=== PATIENT | female | born 1955 | race Caucasian/White ===

== ENCOUNTER 2024-11-24 13:16 | Emergency (ER) | payer MEDICARE, SELFPAY ==
--- NOTE | 2024-11-24 13:18 | ED.GENADULT ---
HPI - General Adult General Chief complaint: Upper Respiratory Infection Stated complaint: cold symptons Time Seen by Provider: 11/24/24 13:17 Source: patient Mode of arrival: ambulatory Limitations: no limitations History of Present Illness HPI narrative: 69-year-old female patient presents to the [facility] with complaints of flu-like symptoms that started about 2 days ago. He patient states that she has had some fatigue, weakness lack of appetite, congestion, sore throat and a cough. Patient states at times she gets shortness of breath with the coughing. Patient states she has been taking some [id number] Mucinex. Denies any fevers that she is aware of. Denies any abdominal pain, nausea, vomiting or diarrhea. Related Data Home Medications ?Medication ?Instructions ?Recorded ?Confirmed ?Last Taken ?Type Isosorbide mononitrate ER 90 mg BYMOUTH 1XD 12/05/23 09/17/24 Unknown History amlodipine 10 mg tablet 10 mg PO DAILY 12/05/23 09/17/24 Unknown History aspirin 81 mg tablet,delayed 81 mg PO DAILY 12/05/23 09/17/24 Unknown History release (Amanda Low Dose Aspirin) cholecalciferol (vitamin D3) 50 5,000 unit PO DAILY 12/05/23 09/17/24 Unknown History mcg (2,000 unit) capsule clopidogrel 75 mg tablet 75 mg PO DAILY 12/05/23 09/17/24 Unknown History magnesium 200 mg tablet 400 mg PO DAILY 12/05/23 09/17/24 Unknown History melatonin 10 mg capsule 20 mg PO QHS 12/05/23 09/17/24 Unknown History metoprolol tartrate 50 mg tablet 50 mg PO BID 12/05/23 09/17/24 Unknown History nitroglycerin 0.4 mg sublingual 0.4 mg sublingual Q5M PRN 12/05/23 09/17/24 Unknown History tablet ranolazine 500 mg tablet,extended 500 mg PO Q12H 12/05/23 09/17/24 Unknown History release,12 hr rosuvastatin 20 mg tablet 20 mg PO DAILY 12/05/23 09/17/24 Unknown History magnesium glycinate 400 mg PO DAILY 09/17/24 09/17/24 Unknown History albuterol sulfate 90 mcg/actuation inhalation 11/24/24 Unknown History aerosol inhaler furosemide 20 mg tablet mg 11/24/24 Unknown History montelukast 10 mg tablet 10 mg PO DAILY 11/24/24 11/24/24 Unknown History (Singulair) Allergies Allergy/AdvReac Type Severity Reaction Status Date / Time clindamycin Allergy Unknown Vomiting Verified 01/03/24 09:49 losartan Allergy Unknown Anaphylactic Verified 01/03/24 09:49 Shock Review of Systems Review of Systems: CONSTITUTIONAL: Denies fever, chills, or sweats. Positive body aches and fatigue EYES: Denies visual changes, redness, or discharge. ENT: Denies rhinorrhea, positive congestion, sore throat, denies otalgia. CARDIOVASCULAR: Denies chest pain, palpitations, or edema. RESPIRATORY: positive cough positive intermittent dyspnea with coughing. GASTROINTESTINAL: Denies abdominal pain, nausea, vomiting, or diarrhea. GENITOURINARY: Denies dysuria or hematuria. SKIN: Denies rash or itching. MUSCULOSKELETAL: Denies back pain, joint pain, or myalgia. NEUROLOGIC: Denies headache, numbness, or weakness. PSYCHIATRIC: Denies anxiety or depression. 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 MAIN (obstructive sleep apnea) Hyperlipidemia Heart attack Chronic GERD CAD (coronary artery disease) Anxiety Seasonal allergic rhinitis Surgical History Surgical History H/O esophagogastroduodenoscopy 10/13/14 H/O colonoscopy 10/13/14 History of cardiac cath H/O mastectomy 2007 S/P ACL reconstruction right knee 1991 H/O: hysterectomy Status post double vessel coronary artery bypass S/P breast lumpectomy Hx of appendectomy History of Marck fundoplication Tubal ligation status Family History Family History Father Alcoholism Hypertension Heart disease Sibling Diabetes mellitus Hypertension Heart disease Grandparent Diabetes mellitus Social History Social History Social History: 09/16/24 Patient very confident in filling out medical forms. Smoking status: Never smoker Alcohol intake: never Substance use: never Substance use type: does not use Do You Feel Safe in your Home?: Yes Lack of Transportation: No Lack of Food: Never True Current Housing: I Have Housing Concerned About Future Housing: No Difficulty Paying Gas/Electric Bills: No Difficulty Paying for Meds: No Currently Unemployed: No Education: Master's Degree or Higher Difficulty w/ Childcare or Family Care: No Living arrangements: with family Occupation/Education: retired Gender identity (if verbalized by the patient): Female Comments At the time of my signature I agree with nursing past medical history, surgical, social, and family history. There is no relevant family history pertinent to the presenting complaint. Exam Narrative: GENERAL: Well-appearing, well-nourished, and in no acute distress. HEAD: Normocephalic, atraumatic. EYES: PERRLA and EOMI. ENT: Nares clear, no rhinorrhea or epistaxis. Mucous membranes moist. NECK: Supple. No lymphadenopathy CHEST: Clear to auscultation. No respiratory distress. HEART: Regular rate and rhythm. No murmur heard. Normal peripheral pulses. ABDOMEN: Soft, nontender, nondistended, normal active bowel sounds. EXTREMITIES: Normal range of motion. No edema. SKIN: Warm, dry, no rash. NEURO: No focal deficits. Alert and oriented x3. Course Course Level of Care: Express Care Visit Vital Signs Vital signs: Vital Signs Temperature 36.3 C L 11/24/24 13:27 Pulse Rate 80 11/24/24 13:27 Respiratory Rate 18 11/24/24 13:27 Blood Pressure 134/80 11/24/24 13:27 Pulse Oximetry 100 11/24/24 13:27 Oxygen Delivery Room Air 11/24/24 13:27 Temperature 36.3 C L 11/24/24 13:27 Pulse Rate 80 11/24/24 13:27 Respiratory Rate 18 11/24/24 13:27 Blood Pressure 134/80 11/24/24 13:27 Pulse Oximetry 100 11/24/24 13:27 Oxygen Delivery Room Air 11/24/24 13:27 vital signs reviewed. The patient has been informed that they may have pre-hypertension or Hypertension based on a BP reading in the department. I recommend that the patient call the primary care provider listed on their discharge instructions or a physician of their choice this week to arrange follow up for further evaluation of possible pre-hypertension or Hypertension Medical Decision Making MDM Narrative Medical decision making narrative: discussed with patient that her point of care testing of influenza, COVID and strep all came back negative. We will send her throat swab to the lab for a culture if that does come back positive we will call her an antibiotic at that time however this time she most likely just has a virus that will take some time to get over. I will go ahead and prescribe her some Tessalon Perles and an inhaler to help with the coughing and shortness of breath as needed. Discussed with patient if her symptoms last longer than 10 days she will need to see her primary doctor or go to the ER for further evaluation. Patient verbalized understanding denies any other questions or concerns at this time. Differential Diagnosis Differential Diagnosis: Differential diagnosis: Allergic rhinitis, chronic sinusitis, tonsillitis, acute sinusitis, infectious mononucleosis, seasonal influenza, pertussis, diphtheria, meningococcal disease, viral syndrome, viral bronchitis, RSV, COVID-19 Vital Signs Vital Signs: Vital Signs Temperature 36.3 C L 11/24/24 13:27 Pulse Rate 80 11/24/24 13:27 Respiratory Rate 18 11/24/24 13:27 Blood Pressure 134/80 11/24/24 13:27 Pulse Oximetry 100 11/24/24 13:27 Oxygen Delivery Room Air 11/24/24 13:27 Temperature 36.3 C L 11/24/24 13:27 Pulse Rate 80 11/24/24 13:27 Respiratory Rate 18 11/24/24 13:27 Blood Pressure 134/80 11/24/24 13:27 Pulse Oximetry 100 11/24/24 13:27 Oxygen Delivery Room Air 11/24/24 13:27 Lab Data Labs: Lab Results 11/24/24 11/24/24 Range/Units 13:47 13:55 POC Influenza A Ag Negative (Negative) POC Influenza B Ag Negative (Negative) POC SARS CoV-2 Ag Negative (Negative) POC Grp A Strep Screen Negative (Negative) Critical Care Time Critical Care Time Critical Care Time: No Discharge Plan Discharge Clinical Impression: Viral URI with cough Patient Disposition: Home, Self-Care Condition: Stable Instructions: Antibiotic Form, Viral Syndrome (ED) Additional Instructions: Viral illness may last between 7-12days; antibiotic is NOT recommended at this time. Recommend antihistamine such as Benadryl at night time and Claritin/Zyrtec/Gina during the day Cough syrup may cause drowsiness; avoid driving or take it at night time. Use inhaler as needed for cough, wheezing, shortness of breath or chest tightness. Also, recommend symptomatic treatment includes: rest, fluids, and increase humidity of the air at home. Recommend Acetaminophen or nonsteroidal anti-inflammatory agents (NSAIDs) as directed in the bottle to reduce fever and/pain/headache. Avoid smoking/second-hand smoke. Limit visits to areas with large crowds. Please schedule a follow-up visit with your personal physician for further evaluation and treatment within 3-5days. Including recheck and discussion of your blood pressure. If your symptoms persist, change or worsen significantly before you can contact your personal physician then please, without delay, go to the emergency department for further evaluation. Patient Language: [place] Prescriptions: New benzonatate 200 mg capsule 200 mg PO TID PRN (Reason: cough) 10 Days Qty: 30 0RF albuterol sulfate [Ventolin HFA] 90 mcg/actuation HFA aerosol inhaler 2 puff INHALATION .Q4 hours PRN (Reason: cough) Qty: 18 0RF No Action furosemide 20 mg tablet montelukast [Singulair] 10 mg tablet 10 mg PO DAILY albuterol sulfate 90 mcg/actuation HFA aerosol inhaler INHALATION metoprolol tartrate 50 mg tablet 50 mg PO BID Isosorbide mononitrate ER 90 mg BYMOUTH 1XD amlodipine 10 mg tablet 10 mg PO DAILY ranolazine 500 mg tablet extended release 12 hr 500 mg PO Q12H clopidogrel 75 mg tablet 75 mg PO DAILY rosuvastatin 20 mg tablet 20 mg PO DAILY melatonin 10 mg capsule 20 mg PO QHS magnesium 200 mg tablet 400 mg PO DAILY nitroglycerin 0.4 mg tablet, sublingual 0.4 mg sublingual Q5M PRN Rx Instructions: do not exceed 3 doses per episode cholecalciferol (vitamin D3) 50 mcg (2,000 unit) capsule 5,000 unit PO DAILY aspirin [Amanda Low Dose Aspirin] 81 mg tablet,delayed release (DR/EC) 81 mg PO DAILY magnesium glycinate 100 mg magnesium capsule 400 mg PO DAILY escitalopram oxalate 5 mg tablet 5 mg PO DAILY Qty: 90 0RF metformin 500 mg tablet 500 mg PO DAILY Qty: 90 0RF (DME) Contour Test Strips Strip See Rx Instructions .Route Qty: 100 3RF Rx Instructions: test morning fasting daily and record semaglutide 7 mg tablet 7 mg PO DAILY Qty: 90 0RF famotidine 20 mg tablet 20 mg PO BID Qty: 180 1RF Follow-up/Referrals: Tameka Briggs APRN [Primary Care Provider] - Time of Disposition: 14:02
[2024-11-24 13:27] VITALS: BP 134/80; PULSE 80; RESP 18; TEMP 36.3; O2SAT 100
[2024-11-24 13:48] LABS: EDSTREPNEGPOS1 Negative (Negative)
[2024-11-24 13:57] LABS: EDCOVIDSCREEN Negative (Negative); EDINFLUASCREEN Negative (Negative); EDINFLUBSCREEN Negative (Negative)
== END 2024-11-24 14:05 | disposition home or self-care (01) ==
PROVIDERS: Emergency Provider Nurse Practitioner Family; PCP Nurse Practitioner Family
DX: J06.9 Acute upper respiratory infection, unspecified (principal); B97.89 Other viral agents as the cause of diseases classified elsewhere; E11.9 Type 2 diabetes mellitus without complications; I10 Essential (primary) hypertension; I25.2 Old myocardial infarction; I25.10 Atherosclerotic heart disease of native coronary artery without angina pectoris; Z20.822 Contact with and (suspected) exposure to COVID-19
CPT/HCPCS: 87081; 87426; 87804; 87880; 99213; G0463